=== PATIENT | female | born 1945 | race Caucasian/White ===

== ENCOUNTER 2016-06-17 18:02 | Emergency (ER) | payer MEDICARE ==
[~2016-06-17] VITALS: Ht 165.1 cm; Wt 75.0 kg
[~2016-06-17 18:02] MED LIST: ASPI-973 PO; ATOR20TA65 PO; CHOL200047 PO; KLO1T PO; LAMO100T2 PO; LOSA1TAB69 PO; OMEP40CA36 PO; PROG200C7 PO; THYR60TA2 PO; TRAM50TA2 PO; VILA40TA PO
[2016-06-17 18:09] VITALS: BP 120/83; PULSE 98; RESP 20; O2SAT 98
--- NOTE | 2016-06-17 19:00 | ED.REPORT ---
HPI-Extremity Problem Lower Date of Service Jun 17, 2016 ED Provider: Dell De Leon DO Pt is a 71 y.o. female with a hx of HTN and HLD who presents to the ED c/o right ankle pain and swelling onset today. Pt states that she tripped on laundry and rolled her ankle earlier today. She reports associated pain with ambulation. She denies hitting her head or LOC. She tripped over a laundry. She denied having a syncopal episode. There is no head injury. No loss consciousness. No chest pain or shortness of breath. She does have rather extreme pain with ambulation. Nursing Notes Stated Complaint: R ANKLE PAIN S/P FALL Chief Complaint: Extremity Trauma Nursing Notes Reviewed: Yes Allergies: Coded Allergies: Sulfa (Sulfonamide Antibiotics) (Verified Allergy, Severe, Rash,Itching,, 01/14/16) Scheduled Aspirin (Aspirin) 81 Mg Tablet 81 MG PO DAILY Atorvastatin Calcium (Atorvastatin Calcium) 20 Mg Tablet 20 MG PO HS Cholecalciferol (Vitamin D3) (Vitamin D3) 2,000 Unit Capsule 6,000 UNIT PO DAILY Clonazepam (Clonazepam) 1 Mg Tablet 1 MG PO BID Lamotrigine (Lamotrigine) 100 Mg Tablet 250 MG PO DAILY Losartan/HCTZ 50-12.5 mg (Losartan/HCTZ 50-12.5 mg) 1 Each Tablet 1 EACH PO DAILY Omeprazole (Omeprazole) 40 Mg Capsule.dr 40 MG PO DAILY Progesterone,Micronized (Progesterone) 200 Mg Capsule 200 MG PO DAILY Thyroid,Pork ([place] Thyroid) 60 Mg Tablet 60 MG PO DAILY 1 hour before breakfast Vilazodone (Viibryd) 40 Mg Tablet 40 MG PO DAILY Scheduled PRN Tramadol (Tramadol) 50 Mg Tablet 50 MG PO TID PRN PRN For Pain General Time Seen by MD: 18:59 Chief Complaint Ankle injury right Hx Obtained From: Patient Arrived By: Walk-in Onset Occurred: 5 - 8 hours ago Symptom Duration: Since onset Caused by: Accidental, Fall on ground Location: : Ankle right: Foot right Quality: Painful Severity: Current: Moderate Recent Healthcare: No recent doctor visit, No recent hospitalization Similar Sx Previous: No Past Medical History Past Medical History Hypertension High cholesterol Family History Noncontributory Smoking History Never Smoker Social History Drug Use: Denies drug use Other Social History: Good social support, , Local resident Ambulatory Status Independent Review of Systems Musculoskeletal: Reports: Extremity pain (Right foot), Joint pain (Right ankle) Neurologic: Reports: Problem walking (due to pain), Denies: Change LOC, Headache Complete sys rev & neg: except as marked. Physical Exam Initial Vital Signs Vital Signs (First) Date Time Temp Pulse Resp B/P Pulse Ox O2 Delivery O2 Flow Rate FiO2 06/17/16 18:09 36.9 98 20 120/83 98 Room Air Initial VS: Reviewed General/Constitutional: Well-developed, Well-nourished Head / Eyes: Atraumatic, Normocephalic Respiratory: Breath sounds normal, No respiratory distress Cardiovascular: Regular rate & rhythm, Intact distal pulses Abdomen / GI: No distention Upper Extremities: Vascular intact, Neuro intact Skin: Warm, Dry, No cyanosis Neurologic: Alert, Oriented, Nonfocal Psychiatric: Mood/affect normal, Behavior normal, Normal thought content Lower Extremity / Pelvis / MS: Neurologic intact, Vascular intact Ankle / Foot: Neurologic intact, Vascular intact Right Ankle: Positive: Ecchymosis present, Swelling present... (Mild), Tenderness present... Soft tissue swelling and ecchymosis of right lateral ankle Interpretation & Diagnostics X-Ray Interpretation Xray Interpretation: IMPRESSION: There is a diagonal fracture across the base of the lateral malleolus as discussed above, mildly displaced, without abnormal widening of the ankle mortise joint medially. A fracture disposition likely warrants orthopedic surgical consultation. Dictated by: Rk Walker M.D. on 06/17/2016 at 19:30 Approved by: Rk Walker M.D. on 06/17/2016 at 19:32 X-Ray Ordered: Ankle right Procedures Splint Application - Fx Mgt Time: 19:23 Procedure Performed by: Luggage Maker, Under my direct supervis Type of Immobilization: Posterior short leg Definitive Fracture Care: Pain control, Splint Post-Procedure / Complications: Cap refill normal, Post splint vascular nl, Post splint neuro nl, Condition improved, Tolerated procedure well, Patient stable Re-Eval/Medical Decision Source of Hx: Old records Counseled Regarding: Diagnosis Discharge & Departure Impression: Primary Impression: Ankle fracture, right Disposition: Home Discharge Condition All VS Reviewed: Yes Condition: Stable Patient Instructions: Ankle Fracture (ED), Crutch Instructions (ED) Additional Instructions: You fractured your right ankle. Use the crutches and do not bear weight on your right ankle. I recommend you follow-up with orthopedics next week. Do not drink , drive, or consume acetaminophen while using [place]. Take 1 Zofran every 8 hours as needed for nausea from [place]. Increase fiber intake while taking [place] to relieve constipation. Call the orthopedic surgeon's office Sunday morning for follow-up. Tell the office that you were seen in the emergency department and have a fractured right ankle that may require surgical intervention. Elevate your foot as much as possible. If any increasing pain return to the emergency department. Referrals: Lisandro Ann MD (PCP) Henrry Roper MD Attestation Portions of this note were transcribed by Tutu Lynn. I, Dr. De Leon personally performed the history, physical exam and medical decision-making; I reviewed and confirmed the accuracy of the information in the transcribed note. Signed by : Elías Lopez, 06/17/16 and 194. copies to: Henrry Roper MD; Lisandro Ann MD, Todd P DO Jun 17, 2016 18:59 TUTU LYNN Jun 17, 2016 19:24
[2016-06-17] MEDS ORDERED: HYDROcodone-APAP 5-325 mg Tablet PO ONE (19:25)
--- NOTE | 2016-06-17 19:34 | DRSVH ---
PROCEDURE: X-RAY RIGHT ANKLE, MINIMUM THREE VIEWS ([id number]) INDICATIONS: RIGHT ANKLE PAIN, SWELLING TECHNIQUE: 3 views of the ankle were acquired. COMPARISON: [facility], CR, XR FOOT 3VW RT, 06/10/2016, 13:28. FINDINGS: Bones: No dislocations. Ankle mortise is normally aligned. No suspicious bony lesions. There is a diagonal fracture involving the base of the lateral malleolus at the metadiaphyseal junction of the distal fibula, displaced by approximately 3 mm inferiorly and laterally. The lateral malleolus shows no trauma, the posterior malleolus shows no trauma. At the hindfoot and midfoot no lesion is seen. Soft tissues: No tibiotalar joint effusion. Achilles tendon appears normal. IMPRESSION: There is a diagonal fracture across the base of the lateral malleolus as discussed above , mildly displaced, without abnormal widening of the ankle mortise joint medially. A fracture dispos ition likely warrants orthopedic surgical consultation. Dictated by: Rk Walker M.D. on 06/17/2016 at 19:30 Approved by: Rk Walker M.D. on 06/17/2016 at 19:32
[2016-06-17 20:04] VITALS: BP 149/85; PULSE 91; O2SAT 96
== END 2016-06-17 20:05 | disposition home or self-care (01) ==
LOC: SED 18:02
DX: S82.61XA Displaced fracture of lateral malleolus of right fibula, initial encounter for closed fracture (principal); W01.0XXA Fall on same level from slipping, tripping and stumbling without subsequent striking against object, initial encounter; Y93.E2 Activity, laundry; Y92.9 Unspecified place or not applicable; Y99.8 Other external cause status; I10 Essential (primary) hypertension; Z79.82 Long term (current) use of aspirin; Z88.2 Allergy status to sulfonamides